=== PATIENT | male | born 1955 | race Caucasian/White ===

== ENCOUNTER 2021-12-20 11:17 | Emergency (ER) | payer MEDICARE ==
[2021-12-20 11:51] VITALS: BP 125/75; PULSE 91; RESP 18; TEMP 98.3
[2021-12-20] MEDS ORDERED: HYDROmorphone 1 MG/ML 1 ML SYRINGE IVP STA (14:49)
[2021-12-20] MEDS ORDERED: KETOROLAC 15 MG/ML 1 ML VIAL IVP STA (14:50)
--- NOTE | 2021-12-20 14:54 | ED ---
General Adult HPI - General Chief complaint: Urogenital Stated complaint: Testicular Injury Time Seen by Provider: 12/20/21 11:50 Source: patient, RN notes reviewed, old records reviewed Mode of arrival: ambulatory Limitations: no limitations - History of Present Illness Initial comments: This is a 66-year-old male who presents emergency Department complaining of left testicular pain. Patient states he was mowing his lawn on Monday when he got the lumbar he had some left testicular pain and has gotten progressively worse and more more swollen. Patient states he can barely touch and now in the can barely walk because of pain down and it hurts severely. Patient denies any abdominal pain patient denies any dysuria hematuria. Patient denies any right testicular pain. Patient denies any abdominal pain or back pain. - Related Data Previous Rx's Medication Instructions Recorded Ibuprofen [Motrin] 600 mg PO Q6HR PRN #20 tab 12/20/21 Levofloxacin [Levaquin] 750 mg PO DAILY #10 tab 12/20/21 Allergies Allergy/AdvReac Type Severity Reaction Status Date / Time No Known Allergies Allergy Verified 12/20/21 11:49 Review of Systems ROS Statement: Those systems with pertinent positive or pertinent negative responses have been documented in the HPI. ROS Other: All systems not noted in ROS Statement are negative. Past Medical History Past Medical History: No Reported History History of Any Multi-Drug Resistant Organisms: None Reported Past Surgical History: No Surgical Hx Reported Past Psychological History: No Psychological Hx Reported Smoking Status: Never smoker Past Alcohol Use History: None Reported Past Drug Use History: Marijuana General Exam - General Exam Comments Initial Comments: GENERAL: Patient is well-developed and well-nourished. Patient is nontoxic and well- hydrated and is in moderate distress. ENT: Neck is soft and supple. No significant lymphadenopathy is noted. Oropharynx is clear. Moist mucous membranes. Neck has full range of motion without eliciting any pain. EYES: The sclera were anicteric and conjunctiva were pink and moist. Extraocular movements were intact and pupils were equal round and reactive to light. Eyelids were unremarkable. ABDOMEN: Soft and nontender with normal bowel sounds. GENITALIA: On examination of the sclera of the patient's left testicle is extremely large and tender to palpation right testicle is nontender and nonenlarged SKIN: Skin is clear with no lesions or rashes and otherwise unremarkable. NEUROLOGIC: Patient is alert and oriented x3. Cranial nerves II through XII are grossly intact. Motor and sensory are also intact. Normal speech, volume and content. Symmetrical smile. MUSCULOSKELETAL: Normal extremities with adequate strength and full range of motion. LYMPHATICS: No significant lymphadenopathy is noted PSYCHIATRIC: Normal psychiatric evaluation. Limitations: no limitations Course Vital Signs 12/20/21 11:49 Temperature 98.3 F Pulse Rate 91 Respiratory 18 Rate Blood Pressure 125/75 O2 Sat by Pulse 97 Oximetry Medical Decision Making - Medical Decision Making Patient's ultrasound showed epididymitis and orchitis. I spoke with Dr. Rosa he wanted the patient is started on Levaquin and follow-up in his office. - Lab Data Lab Results 12/20/21 Range/Units 14:49 Urine Color Yellow Urine Appearance Cloudy (Clear) Urine pH 5.5 (5.0-8.0) Ur Specific [place] 1.026 (1.001-1.035) Urine Protein 1+ H (Negative) Urine Glucose (UA) Negative (Negative) Urine Ketones Negative (Negative) Urine Blood Moderate H (Negative) Urine Nitrite Negative (Negative) Urine Bilirubin Negative (Negative) Urine Urobilinogen <2.0 (<2.0) mg/dL Ur Leukocyte Esterase Large H (Negative) Urine RBC 7 H (0-5) /hpf Urine WBC >182 H (0-5) /hpf Urine Mucus Few H (None) /hpf Disposition Clinical Impression: Epididymo-orchitis Disposition: HOME SELF-CARE Condition: Good Instructions (If sedation given, give patient instructions): Epididymo-Orchitis (ED) Additional Instructions: Patient should return to the emergency department if symptoms worsen or if he starts having a fever. Patient needs to follow up with urology this week Prescriptions: Levofloxacin [Levaquin] 750 mg PO DAILY #10 tab Ibuprofen [Motrin] 600 mg PO Q6HR PRN #20 tab PRN Reason: For pain Is patient prescribed a controlled substance at d/c from ED?: No Referrals: Dylan Bustos MD [STAFF PHYSICIAN] - 1-2 days Time of Disposition: 15:54
[2021-12-20 15:29] LABS: Appearance,Urine Cloudy (Clear); Bilirubin,Urine Negative (Negative); Blood,Urine Moderate (Negative); Color,Urine Yellow; Glucose,Urine (UA) Negative (Negative); Ketones,Urine Negative (Negative); Leukocyte Esterase,Urine Large (Negative); Mucus,Urine Few /hpf; Nitrite,Urine Negative (Negative); PH, Urine 5.5 (5.0-8.0); Protein,Urine 1+ (Negative); RBC,Urine 7 /hpf (0-5); Specific Gravity,Urine 1.026 (1.001-1.035); Urobilinogen,Urine <2.0 mg/dL (<2.0); WBC,Urine >182 /hpf (0-5)
--- NOTE | 2021-12-20 15:39 | US ---
EXAMINATION TYPE: US scrotum with doppler. Grayscale and color Doppler Duplex imaging performed of munira casarez scrotum. DATE OF EXAM: 12/20/2021 COMPARISON: NONE CLINICAL HISTORY: injury. Injury. Pain in left testicle. EXAM MEASUREMENTS: TESTICLES: Right Testicle: 4.2 x 3.3 x 2.8 cm Left Testicle: 4.3 x 3.8 x 2.7 cm EPIDIDYMIS HEAD: Right Epididymis: 1.0 x 1.1 x 1.3 cm. Anechoic area seen adjacent to right epididymis: 0.3 x 0.3 x 0.3 cm. Left Epididymis: 1.0 x 0.6 x 0.8 cm. Hyperechoic area seen adjacent to the left epididymis: 0.3 x 0.4 x 0.4 cm. Doppler performed to assess for testicular vascularity; bilateral color flow and waveforms are seen. Presence of hydroceles: Anechoic area seen on the right: 2.4 x 2.1 x 2.6 cm. Complex area seen on th e left: 3.8 x 4.4 x 3.5 cm. Presence of varicoceles: None seen There appears to be increased vascularity within left testicle in comparison to the right testicle. Heterogeneous area seen lateral to the left testicle appears to be the left epididymis. Skin appears to be thickened measuring 1.6 cm. Small right scrotal fluid collection or hydrocele. Satisfactory blood flow in right testicle. More moderate size nonsimple left scrotal fluid collection. Satisfactory blood flow in left testicle. Comparison view show asymmetric increased blood flow to left testicle versus opposite right side on i mages saved and during real-time scanning. IMPRESSION: Left-sided acute orchitis/epididymitis needs to be considered given nonsimple scrotal flu id collection and increased left-sided vascularity.
[2021-12-20] MEDS ORDERED: cefTRIAXone IN SWFI 1,000 MG/10 ML SYRINGE IVP STA (15:49)
[2021-12-20] MEDS ORDERED: ACET/COD 300 MG/30 MG STARTER PACK 6 TAB BTL PO STA (15:55)
[2021-12-20] MEDS ORDERED: cefTRIAXone IN SWFI 1,000 MG/10 ML SYRINGE IVP ONE (16:00)
== END 2021-12-20 16:11 | disposition home or self-care (01) ==
LOC: EC 11:17
DX: N45.3 Epididymo-orchitis (principal)
CPT/HCPCS: 81001; 87086; 93975; 76870; 99284; 96374; 96375; J0696; J1170; J1885